=== PATIENT | female | born 1960 | race Caucasian/White ===

== ENCOUNTER 2018-04-08 03:24 | Emergency (ER) | payer BC ==
[2018-04-08] MEDS ORDERED: ONDANSETRON HCL 4 MG/2 ML SOL ONE (03:35)
[2018-04-08] MEDS ORDERED: HYDROMORPHONE 1 MG/ML SYRINGE ONE ×2 (03:35→03:53)
[2018-04-08] MEDS ORDERED: HYDROMORPHONE 1 MG/ML SYRINGE IV ONE ×2 (03:45→03:55)
[2018-04-08] MEDS ORDERED: ONDANSETRON HCL 4 MG/2 ML SOL IV ONE (03:45)
[2018-04-08] MEDS ORDERED: SODIUM CHLORIDE 0.9% 1000ML 1,000 ML IV ONE (03:45)
[2018-04-08 03:53] LABS: BASOPHILS % (AUTO) 1 % (0-3); EOSINOPHILS % (AUTO) 2 % (0-9); HEMATOCRIT 43 % (35-47); HEMOGLOBIN 14.5 gm/dl (12.0-15.5); LYMPHOCYTES % (AUTO) 19.2 % (10-50); MEAN CORPUSCULAR HEMOGLOBIN 30.2 pg (27.0-32.0); MEAN CORPUSCULAR HGB CONC 33.6 gm/dl (32.0-36.0); MEAN CORPUSCULAR VOLUME 90 fL (81-99); MONOCYTES % (AUTO) 6.2 % (0-12); NEUTROPHILS % (AUTO) 71.6 % (37-80)
[2018-04-08 03:55] LABS: LACTIC ACID 1.9 mMol/L (0.0-2.0)
[2018-04-08 04:05] LABS: ALBUMIN 3.8 gm/dl (3.4-5.0); BILIRUBIN,TOTAL 0.3 mg/dl (0.2-1.0); CALCIUM 9.1 mg/dl (8.5-10.1); CREATININE 0.95 mg/dl (0.60-1.00); POTASSIUM 3.4 mMol/L (3.5-5.1); TOTAL PROTEIN 7.2 gm/dl (6.4-8.2)
[2018-04-08] MEDS ORDERED: SODIUM CHLORIDE 0.9% FLUSH 10 ML SOL IV PRN (04:21)
[2018-04-08 04:38] VITALS: TEMP 97.5
[2018-04-08 04:45] LABS: APPEARANCE,URINE Clear; BILIRUBIN,URINE NEGATIVE (NEGATIVE); COLOR,URINE Yellow; GLUCOSE, URINE (UA) NEGATIVE (NEGATIVE); KETONES,URINE NEGATIVE (NEGATIVE); LEUKOCYTE ESTERASE ,URINE TRACE (NEGATIVE); NITRATE,URINE NEGATIVE (NEGATIVE); OCCULT BLOOD,URINE 3+ (NEG-TRACE); UROBILINOGEN,URINE 0.2 (0.2-1.0 EU)
[2018-04-08 04:51] LABS: BACTERIA 1+ (< 1+); CRYSTALS NEGATIVE (0-3 AVE/HPF); RBC,URINE 80-100 (0-3AV/HPF)
[2018-04-08 05:08] VITALS: BP 169/100; PULSE 71; RESP 73
[2018-04-08] MEDS ORDERED: APAP/OXYCODONE 1 EACH TABLET PO ONE (05:25)
[2018-04-08] MEDS ORDERED: TAMSULOSIN HYDROCHLORIDE 0.4 MG CAP PO ONE (05:25)
[2018-04-08] MEDS ORDERED: APAP/OXYCODONE 1 EACH TABLET ONE (05:26)
[2018-04-08] MEDS ORDERED: TAMSULOSIN HYDROCHLORIDE 0.4 MG CAP ONE (05:26)
[2018-04-08 06:00] VITALS: O2SAT 97
== END 2018-04-08 05:53 | disposition home or self-care (01) ==
LOC: SUPCPDRO 03:24 → ED 03:24
DX: N20.0 Calculus of kidney (principal)
CPT/HCPCS: 36415; 74177; 80053; 81001; 82150; 84484; 85025; 87088; 93005; 96365; 96374; 96375; 99283; 99285; J2405; Q9967; A9270-GY; J1170